=== PATIENT | male | born 1995 | race Caucasian/White ===

== ENCOUNTER 2023-03-22 10:55 | Emergency (ER) | payer MEDICAID ==
[~2023-03-22] VITALS: Ht 170.2 cm; Wt 108.9 kg
[2023-03-22 11:04] VITALS: TEMP 98.2; O2SAT 98
[2023-03-22] MEDS ORDERED: ONDANSETRON 4MG ODT PO ONE (13:30)
[2023-03-22] MEDS ORDERED: CLONIDINE 0.1MG TABLET PO ONE (13:30)
[2023-03-22 14:09] VITALS: BP 137/90; PULSE 61; RESP 20
== END 2023-03-22 14:11 | disposition home or self-care (01) ==
LOC: ER 10:55
DX: F11.20 Opioid dependence, uncomplicated (principal)
CPT/HCPCS: 99283; Q0162